=== PATIENT | female | born 1945 | race Caucasian/White ===

== ENCOUNTER 2018-09-03 07:25 | Day surgery (SDC) | payer OTHER ==
[2018-08-26 09:52] VITALS: BMI 27.1
[2018-09-03 08:02] VITALS: TEMP 97.8
[2018-09-03] MEDS ORDERED: LIDOCAINE HCL/PF 2% SDV 5ML VIAL ONE (08:12)
[2018-09-03] MEDS ORDERED: PROPOFOL 20 ML ONE ×2 (08:12)
[2018-09-03 09:11] VITALS: BP 102/63; PULSE 71
== END 2018-09-03 09:10 | disposition home or self-care (01) ==
LOC: FASU-ENDO 07:25
PROVIDERS: ATTEND Internal Medicine Gastroenterology
PROC: 0DJD8ZZ Inspection of Lower Intestinal Tract, Via Natural or Artificial Opening Endoscopic (ICD-10-PCS; principal; 2018-09-03 08:23)
DX: Z86.010 Personal history of colon polyps (principal); K57.30 Diverticulosis of large intestine without perforation or abscess without bleeding

== ENCOUNTER 2023-10-11 08:00 | Day surgery (SDC) | payer OTHER ==
[2023-10-07 15:10] VITALS: BMI 26.4
[2023-10-11 09:38] VITALS: RESP 16; TEMP 97.1
[2023-10-11 10:13] VITALS: BP 107/60; PULSE 68
== END 2023-10-11 10:10 | disposition home or self-care (01) ==
LOC: FASU-ENDO 08:00
PROVIDERS: ATTEND Internal Medicine Gastroenterology
PROC: 0DJD8ZZ Inspection of Lower Intestinal Tract, Via Natural or Artificial Opening Endoscopic (ICD-10-PCS; principal; 2023-10-11 09:18)
DX: Z12.11 Encounter for screening for malignant neoplasm of colon (principal); K64.5 Perianal venous thrombosis; K64.1 Second degree hemorrhoids; K64.8 Other hemorrhoids; K57.30 Diverticulosis of large intestine without perforation or abscess without bleeding